=== PATIENT | male | born 1990 | race Two or more races ===

== ENCOUNTER 2019-07-27 16:19 | Emergency (ER) | payer MEDICAID ==
[~2019-07-27] VITALS: Ht 188 cm; Wt 83.9 kg
--- NOTE | 2019-07-27 17:00 | NUR ---
patient came in to the ER c/o left sided head pressure with congestion to left ear. On rooma ir, breathing evenly and unlabored. connected to the monitor and pulse ox. kept comfortable, will continue to monitor accordingly.
[2019-07-27 17:49] VITALS: BP 134/74
--- NOTE | 2019-07-27 17:49 | NUR ---
Patient discharged to home in stable condition. Written and verbal after care instructions given. Patient verbalizes understanding of instruction.
== END 2019-07-27 17:50 | disposition home or self-care (01) ==
LOC: ER 16:19
DX: S16.1XXA Strain of muscle, fascia and tendon at neck level, initial encounter (principal); G51.0 Bell's palsy; Z60.2 Problems related to living alone; V49.49XA Driver injured in collision with other motor vehicles in traffic accident, initial encounter; Y93.89 Activity, other specified; Y92.488 Other paved roadways as the place of occurrence of the external cause; Y99.8 Other external cause status